=== PATIENT | male | born 1950 | race African-American/Black ===

== ENCOUNTER 2016-05-10 12:40 | Emergency (ER) | payer OTHER ==
[~2016-05-10] VITALS: Ht 185.4 cm; Wt 77.1 kg
[2016-05-10] MEDS ORDERED: SODIUM CHLORIDE 0.9% 1,000 ML IV ONE (15:44)
[2016-05-10] MEDS ORDERED: ONDANSETRON HCL 4 MG/2 ML VIAL IV ONE ×2 (15:45→18:15)
[2016-05-10] MEDS ORDERED: DIAZEPAM 5 MG/ML 2ML SYRG IV ONE (15:45)
[2016-05-10 15:59] LABS: Basophils # (auto) 0 uL; Basophils % (auto) 0.1 % (0.0-2.0); Eosinophils # (auto) 0 uL; Hematocrit 47.2 % (41.0-53.0); Hemoglobin 15.4 g/dL (13.5-17.5); Lymphocytes # (auto) 0.4 uL; Lymphocytes % (auto) 2.9 % (10.0-50.0); Mean Corpuscular Hemoglobin 27.9 pg (28.0-32.0); Mean Corpuscular Hgb Conc. 32.7 g/dL (32.0-36.0); Mean Corpuscular Volume 85.1 fL (80.0-100.0); Mean Platelet Volume 7.3 fL (7.4-10.4); Monocytes # (auto) 0.2 uL; Monocytes % (auto) 1.6 % (0.0-12.0); Neutrophils # (auto) 12.5 uL; Neutrophils % (auto) 95.4 % (37.0-80.0); Platelet Count (auto) 277 10^3/uL (140-450); Red Cell Distribution Width 13.8 % (11.6-16.0); White Blood Cell 13.1 10^3/uL (4.4-10.8)
[2016-05-10 16:20] LABS: Albumin 3.9 g/dL (3.4-5.0); Anion Gap 11 (5-15); Aspartate Aminotransferase 13 U/L (15-37); BUN/Creatinine Ratio 11.4; Blood Urea Nitrogen 12 mg/dL (7-18); Calcium 8.4 mg/dL (8.5-10.1); Carbon Dioxide 22 mmol/L (21-32); Chloride 107 mmol/L (98-107); GFR African American 90 mL/min; GFR Non-African American 75 mL/min; Glucose 130 mg/dL (74-106); Magnesium 2.1 mg/dL (1.6-2.6); Potassium 4.3 mmol/L (3.5-5.1); Sodium 140 mmol/L (136-145)
[2016-05-10 16:25] LABS: Alkaline Phosphatase 90 U/L (45-117); Bilirubin, Total 0.9 mg/dL (0.2-1.0); Total Protein 7.6 g/dL (6.4-8.2)
[2016-05-10 17:38] LABS: Urine Color Yellow (Yellow)
[2016-05-10 17:39] LABS: Urine Glucose Normal (Normal); Urine Nitrite Negative (Negative)
[2016-05-10 17:40] LABS: Urine Bilirubin Negative (Negative); Urine Blood Negative /uL (Negative); Urine Ketone Negative (Negative); Urine RBC 5 /hpf (0 - 3); Urine Urobilinogen Normal (Negative)
[2016-05-10 17:41] LABS: Urine Hyaline Cast FEW /lpf (0 - 2); Urine Mucus FEW (None Seen); Urine Squamous Epithelial Cell FEW /hpf (<5)
[2016-05-10 18:18] LABS: B-Type Natriuretic Peptide 125.44 pg/mL (0-100)
[2016-05-10 18:19] LABS: Temperature: 23.5 C (20.0-25.0)
[2016-05-10] MEDS ORDERED: PROMETHAZINE HCL 25 MG/ML 1ML IV ONE (20:15)
[2016-05-10 23:41] VITALS: BP 135/92
== END 2016-05-11 00:03 | disposition short-term general hospital (02) ==
LOC: ER 12:40 → EDBD 12:40 → ER 05-11 00:03
DX: E86.0 Dehydration (principal); D72.829 Elevated white blood cell count, unspecified; I10 Essential (primary) hypertension; R42 Dizziness and giddiness; R55 Syncope and collapse; R10.9 Unspecified abdominal pain; H53.8 Other visual disturbances; R11.2 Nausea with vomiting, unspecified
CPT/HCPCS: 36415; 70450; 71010; 80053; 81001; 83735; 83880; 84484; 85025; 93005; 96361; 96374; 96375; 96376; 99285; J2405; J2550; J3360